=== PATIENT | male | born 1995 | race Caucasian/White ===

== ENCOUNTER 2018-08-28 13:10 | Emergency (ER) | payer BC ==
[~2018-08-28] VITALS: Ht 172.7 cm; Wt 81.6 kg
[2018-08-28 13:24] VITALS: BP_SYST 160
[2018-08-28 15:45] VITALS: BP_SYST 140
== END 2018-08-28 15:45 | disposition home or self-care (01) ==
LOC: SED 13:10
DX: H66.91 Otitis media, unspecified, right ear (principal); R03.0 Elevated blood-pressure reading, without diagnosis of hypertension; Z88.8 Allergy status to other drugs, medicaments and biological substances
CPT/HCPCS: 36415; 86403; 87081; 99283